=== PATIENT | female | born 1990 | race Caucasian/White ===

== ENCOUNTER 2024-12-05 12:56 | Emergency (ER) | payer SELFPAY ==
[~2024-12-05] VITALS: Ht 175.3 cm; Wt 79.0 kg
[2024-12-05 13:09] VITALS: O2SAT 98
[2024-12-05] MEDS ORDERED: DIPHENHYDRAMINE 50MG CAPSULE PO ONE (13:45)
[2024-12-05] MEDS: FAMOTIDINE 20MG TABLET PO ONE (14:21)
[2024-12-05] MEDS: PREDNISONE 20MG TABLET PO ONE (14:21)
[2024-12-05] MEDS: DIPHENHYDRAMINE 25MG CAPSULE PO NR (14:21)
[2024-12-05] MEDS ORDERED: P50 MT (14:27)
[2024-12-05] MEDS ORDERED: DIPH25CA83 MT (14:27)
[2024-12-05 14:38] VITALS: BP 121/67; PULSE 98; RESP 16; TEMP 36.7; O2SAT 98
== END 2024-12-05 14:39 | disposition home or self-care (01) ==
LOC: ER 13:26
DX: L50.0 Allergic urticaria (principal); Z90.89 Acquired absence of other organs
CPT/HCPCS: 99284; Q0163; J7512